=== PATIENT | female | born 1980 | race Caucasian/White ===

== ENCOUNTER 2017-12-23 13:45 | Emergency (ER) | payer MEDICARE, MEDICAID ==
[~2017-12-23] VITALS: Ht 157.5 cm; Wt 70.8 kg
[~2017-12-23 13:45] MED LIST: ACETAMINOPHEN-1 EAC1 PO; ASTAGRAF XL1 MG PO; AUGMENTIN 500-1 EACH PO; CELEXA20 MG PO; CIPRO500 MG PO; CLONAZEPAM; DOXYCYCLINE 10100 MG PO; FLAGYL 250 MG250 MG PO; FLONASE 0.05%50 MCG NS; LISINOPRIL2.5 MG PO; MYCOPHENOLIC A180 MG PO; MYFORTIC; SERTRALINE HCL50 MG PO; TACROLIMUS1 MG PO; VISTARIL 25 MG25 M1 PO; ZOFRAN ODT4 MG DISSOLVE
[2017-12-23] MEDS ORDERED: MYFORTIC360 MG PO (14:08)
[2017-12-23] MEDS ORDERED: LASIX 20 MG TAB20 MG PO (14:08)
[2017-12-23] MEDS ORDERED: ALDACTONE50 MG PO (14:09)
[2017-12-23] MEDS ORDERED: PROGRAF1 MG PO (14:10)
[2017-12-23] MEDS ORDERED: AMBIEN 5 MG TABL5 M1 PO (14:11)
[2017-12-23 14:44] LABS: ABSOLUTE BASOPHILS 0.1 thou/uL (0.0-0.2); ABSOLUTE EOSINOPHILS 0.1 thou/uL (0.0-0.7); ABSOLUTE LYMPHOCYTES 1.3 thou/uL (0.8-5.3); ABSOLUTE MONOCYTES 0.6 thou/uL (0.0-1.2); ABSOLUTE NEUTROPHILS 5.4 thou/uL (1.6-8.1); BASOPHILS 0.8 %; EOSINOPHILS 1.4 %; HEMATOCRIT 51.1 % (37.0-47.0); HEMOGLOBIN 16.8 gm/dL (12.0-15.0); LYMPHOCYTES 17.7 %; MCH 29.9 pg (26.0-34.0); MCHC 32.9 g/dL (28.0-37.0); MCV 90.9 fL (80.0-100.0); MONOCYTES 7.6 %; MPV 10.8 fl. (7.2-11.1); NUCLEATED RBCS 0 /100WBC; PLATELET COUNT* 111 thou/uL (150-400); POLYS 72.5 %; RBC 5.62 mil/uL (4.20-5.00); RDW-CV 14.6 % (10.5-14.5); WBC 7.5 thou/uL (4.0-11.0)
[2017-12-23 14:56] LABS: ANION GAP 13 mmol/L (7-16); BUN 22 mg/dL (7-18); CALCIUM 8.8 mg/dL (8.5-10.1); CHLORIDE 106 mmol/L (98-107); CO2 20 mmol/L (21-32); CREATININE 1.3 mg/dL (0.6-1.3); GLUCOSE 84 mg/dL (70-99); POTASSIUM 4.3 mmol/L (3.5-5.1); SODIUM 139 mmol/L (136-145)
[2017-12-23 15:04] LABS: ALBUMIN 3.7 g/dL (3.4-5.0); ALKALINE PHOSPHATASE 79 U/L (46-116); SGOT 11 U/L (15-37); SGPT 18 U/L (30-65); TOTAL BILIRUBIN 0.3 mg/dL (<0.1-1.0); TOTAL PROTEIN 7.8 g/dL (6.4-8.2); TROPONIN-I LEVEL <0.06 ng/mL (<0.06)
[2017-12-23 16:03] LABS: URINE BILIRUBIN NEGATIVE (Negative); URINE BLOOD NEGATIVE (Negative); URINE CLARITY CLEAR; URINE COLOR YELLOW; URINE GLUCOSE-RANDOM NEGATIVE (Negative); URINE KETONES NEGATIVE (Negative); URINE LEUKOCYTES-REFLEX NEGATIVE (Negative); URINE NITRITE-REFLEX NEGATIVE (Negative); URINE PROTEIN NEGATIVE (Negative); URINE SPECIFIC GRAVITY <= 1.005 (1.005-1.030); URINE UROBILINOGEN 0.2 E.U./dl (0.2-1.0)
[2017-12-23 16:40] VITALS: BP 141/83
--- NOTE | 2017-12-24 16:34 | EKG ---
[place] [address] ELECTROCARDIOGRAM REPORT Name: JONG ALMODOVAR Room: [facility]#: [id number] Admission: 12/23/17 Attend Phys: Discharge: 12/23/17 Date of : 78 Report #: [id number] THIS REPORT FOR: //name// [facility] ED Test Date: 2017-12-23 Test Time: 14:46:32 Pat Name: JONG ALMODOVAR Department: Room: Gender: F Intermediate Project Manager: CRESCENCIO : 1980 Requested By: Sherrie Alfonso Order Number: [id number] : Tee Ambriz Measurements Intervals [place] Rate: 75 P: 36 VT: 130 QRS: 32 QRSD: 87 T: 42 QT: 373 QTc: 417 Interpretive Statements Sinus rhythm Compared to ECG 10/01/2016 17:33:48 ST (T wave) deviation no longer present Electronically Signed On 12-24-2017 16:34:42 CDT by Tee Ambriz [email or web address] <ELECTRONICALLY SIGNED> By: Tee Ambriz MD, [facility] 12/24/17 1634 1446 1446 Tee Ambriz MD, FACC /EPI
== END 2017-12-23 16:41 | disposition home or self-care (01) ==
LOC: M.ERS 13:45
PROVIDERS: Nurse Practitioner Family
DX: K42.9 Umbilical hernia without obstruction or gangrene (principal); F17.210 Nicotine dependence, cigarettes, uncomplicated; Z94.0 Kidney transplant status; Z88.1 Allergy status to other antibiotic agents; Z88.8 Allergy status to other drugs, medicaments and biological substances; Z98.890 Other specified postprocedural states

== ENCOUNTER 2019-12-11 10:26 | Emergency (ER) | payer MEDICARE ==
[~2019-12-11] VITALS: Ht 157.5 cm; Wt 72.6 kg
[~2019-12-11 10:26] MED LIST changes: +ALDACTONE50 MG PO; +AMBIEN 5 MG TABL5 M1 PO; +LASIX 20 MG TAB20 MG PO; +MYFORTIC360 MG PO; +PROGRAF1 MG PO
[2019-12-11] MEDS ORDERED: NORCO 5-325 TA1 EAC2 PO (10:43)
[2019-12-11] MEDS ORDERED: PENICILLIN VK500 MG PO (10:44)
[2019-12-11] MEDS ORDERED: ZOFRAN ODT4 MG DISSOLVE (10:44)
[2019-12-11] MEDS ORDERED: XANAX2 MG PO (10:47)
[2019-12-11] MEDS ORDERED: ZOLOFT20 MG/1 ML PO (10:48)
[2019-12-11] MEDS ORDERED: GABITRIL 4 MG TA4 MG PO (10:48)
[2019-12-11 11:10] VITALS: BP 133/79
== END 2019-12-11 11:10 | disposition home or self-care (01) ==
LOC: M.ERS 10:26
DX: S02.5XXA Fracture of tooth (traumatic), initial encounter for closed fracture (principal); K02.9 Dental caries, unspecified; R10.31 Right lower quadrant pain; Z94.0 Kidney transplant status; Z88.1 Allergy status to other antibiotic agents; Z88.8 Allergy status to other drugs, medicaments and biological substances; X58.XXXA Exposure to other specified factors, initial encounter; Y93.89 Activity, other specified; Y92.89 Other specified places as the place of occurrence of the external cause; Y99.8 Other external cause status

== ENCOUNTER 2020-04-08 11:27 | Emergency (ER) | payer MEDICARE ==
[~2020-04-08] VITALS: Ht 157.5 cm; Wt 68.0 kg
[~2020-04-08 11:27] MED LIST changes: +GABITRIL 4 MG TA4 MG PO; +NORCO 5-325 TA1 EAC2 PO; +PENICILLIN VK500 MG PO; +XANAX2 MG PO; +ZOLOFT20 MG/1 ML PO
[2020-04-08] MEDS ORDERED: TIZANIDINE HCL 22 M1 PO (11:53)
[2020-04-08] MEDS ORDERED: COZAAR 25 MG TA25 M1 PO (11:53)
[2020-04-08 12:13] LABS: URINE BILIRUBIN NEGATIVE (Negative); URINE BLOOD 1+ (Negative); URINE CLARITY CLEAR; URINE COLOR YELLOW; URINE GLUCOSE-RANDOM NEGATIVE (Negative); URINE KETONES NEGATIVE (Negative); URINE NITRITE-REFLEX NEGATIVE (Negative); URINE PROTEIN 2+ (Negative); URINE UROBILINOGEN 0.2 E.U./dl (0.2-1.0)
[2020-04-08 12:16] LABS: HEMATOCRIT 28.9 % (37.0-47.0); HEMOGLOBIN 9.5 gm/dL (12.0-15.0); MCH 28.4 pg (26.0-34.0); MCHC 32.7 g/dL (28.0-37.0); MCV 86.8 fL (80.0-100.0); MPV 10.8 fl. (7.2-11.1); NUCLEATED RBCS 0 /100WBC; PLATELET COUNT* 108 thou/uL (150-400); RBC 3.33 mil/uL (4.20-5.00); RDW-CV 14.9 % (10.5-14.5); WBC 20.6 thou/uL (4.0-11.0)
[2020-04-08 12:21] LABS: CALCIUM 8.8 mg/dL (8.5-10.1); CREATININE 2.5 mg/dL (0.6-1.3); POTASSIUM 3.8 mmol/L (3.5-5.1)
[2020-04-08 12:25] LABS: ALBUMIN 3.5 g/dL (3.4-5.0); TOTAL BILIRUBIN 0.5 mg/dL (<0.1-1.0); TOTAL PROTEIN 7.3 g/dL (6.4-8.2)
[2020-04-08 12:25] LABS: CASTS None Seen /LPF (None Seen); CRYSTALS None Seen /LPF (None Seen); SQUAMOUS 0-3 Few /LPF (0-3); URINE LEUKOCYTES-REFLEX 2+ (Negative); URINE RBC 0-2 Rare /HPF (0-2); URINE WBC-REFLEX 6-15 Few /HPF (0-5)
[2020-04-08 12:53] LABS: ABSOLUTE LYMPHOCYTES 0.4 thou/uL (0.8-5.3); ABSOLUTE NEUTROPHILS 19.2 thou/uL (1.6-8.1); PLATELET ESTIMATE ADEQUATE
[2020-04-08 17:23] VITALS: BP 121/82
== END 2020-04-08 17:23 | disposition short-term general hospital (02) ==
LOC: M.ERS 11:27
PROVIDERS: Physician Assistant
DX: N39.0 Urinary tract infection, site not specified (principal); R11.2 Nausea with vomiting, unspecified; D72.829 Elevated white blood cell count, unspecified; N17.9 Acute kidney failure, unspecified; Z20.828 Contact with and (suspected) exposure to other viral communicable diseases; Z88.8 Allergy status to other drugs, medicaments and biological substances; Z88.1 Allergy status to other antibiotic agents; Z94.0 Kidney transplant status

== ENCOUNTER 2020-07-25 13:00 | Emergency (ER) | payer MEDICARE ==
[~2020-07-25] VITALS: Ht 157.5 cm; Wt 70.3 kg
[~2020-07-25 13:00] MED LIST changes: +COZAAR 25 MG TA25 M1 PO; +TIZANIDINE HCL 22 M1 PO
[2020-07-25 14:32] LABS: ABSOLUTE BASOPHILS 0.1 thou/uL (0.0-0.2); ABSOLUTE EOSINOPHILS 0.2 thou/uL (0.0-0.7); ABSOLUTE LYMPHOCYTES 1.2 thou/uL (0.8-5.3); ABSOLUTE MONOCYTES 0.6 thou/uL (0.0-1.2); ABSOLUTE NEUTROPHILS 6.1 thou/uL (1.6-8.1); BASOPHILS 1.1 %; EOSINOPHILS 2.2 %; HEMATOCRIT 33.8 % (37.0-47.0); HEMOGLOBIN 11.2 gm/dL (12.0-15.0); LYMPHOCYTES 14.8 %; MCH 29.3 pg (26.0-34.0); MCHC 33.1 g/dL (28.0-37.0); MCV 88.6 fL (80.0-100.0); MONOCYTES 7.1 %; MPV 10.1 fl. (7.2-11.1); NUCLEATED RBCS 0 /100WBC; PLATELET COUNT* 103 thou/uL (150-400); POLYS 74.8 %; RBC 3.81 mil/uL (4.20-5.00); RDW-CV 14.7 % (10.5-14.5); WBC 8.2 thou/uL (4.0-11.0)
[2020-07-25 14:40] LABS: CALCIUM 8.9 mg/dL (8.5-10.1); CREATININE 1.9 mg/dL (0.6-1.3); POTASSIUM 4.5 mmol/L (3.5-5.1)
[2020-07-25 14:51] LABS: ALBUMIN 3.2 g/dL (3.4-5.0); TOTAL BILIRUBIN 0.3 mg/dL (<0.1-1.0)
[2020-07-25] MEDS ORDERED: PROAIR HFA8.5 GM INH (17:10)
[2020-07-25] MEDS ORDERED: DECONEX DMX 171 EACH PO (17:10)
[2020-07-25 17:21] VITALS: BP 165/94
--- NOTE | 2020-07-26 12:12 | EKG ---
[place] [address] ELECTROCARDIOGRAM REPORT Name: JONG ALMODOVAR Room: [facility]#: [id number] Admission: 07/25/20 Attend Phys: Discharge: 07/25/20 Date of : 78 Date of Service: 07/25/20 1353 Report #: [id number] THIS REPORT FOR: //name// [facility] ED Test Date: 2020-07-25 Test Time: 13:53:58 Pat Name: JONG ALMODOVAR Department: Room: Gender: Running Specialist: GOLDBERG : 1980 Requested By: Julián Mulligan Order Number: [id number] : Tee Ambriz Measurements Intervals [place] Rate: 87 P: 32 ND: 122 QRS: 42 QRSD: 78 T: 45 QT: 353 QTc: 425 Interpretive Statements Sinus rhythm Compared to ECG 12/23/2017 14:46:32 No significant changes Electronically Signed On 07-26-2020 12:12:10 CDT by Tee Ambriz [email or web address] <ELECTRONICALLY SIGNED> By: Tee Ambriz MD, [facility] 07/26/20 1212 1353 1353 Tee Ambriz MD, FAC /EPI
== END 2020-07-25 17:22 | disposition home or self-care (01) ==
LOC: M.ERS 13:00
PROVIDERS: Emergency Medicine
DX: N28.9 Disorder of kidney and ureter, unspecified (principal); J40 Bronchitis, not specified as acute or chronic; Z20.822 Contact with and (suspected) exposure to COVID-19; Z88.1 Allergy status to other antibiotic agents; Z88.8 Allergy status to other drugs, medicaments and biological substances; Z87.01 Personal history of pneumonia (recurrent); Z94.0 Kidney transplant status

== ENCOUNTER 2021-05-31 17:05 | Emergency (ER) | payer MEDICARE ==
[~2021-05-31] VITALS: Ht 157.5 cm; Wt 77.1 kg
[~2021-05-31 17:05] MED LIST changes: +DECONEX DMX 171 EACH PO; +PROAIR HFA8.5 GM INH
[2021-05-31] MEDS ORDERED: FUROSEMIDE 40 M40 MG PO (17:19)
[2021-05-31] MEDS ORDERED: MELATONIN10 M3 PO (17:20)
[2021-05-31] MEDS ORDERED: VITAMIN D21250 MCG PO (17:20)
[2021-05-31] MEDS ORDERED: SODIUM BICARBO650 M3 PO (17:20)
[2021-05-31] MEDS ORDERED: LOPRESSOR50 MG PO (17:21)
[2021-05-31] MEDS ORDERED: TACROLIMUS1 MG PO (17:21)
[2021-05-31] MEDS ORDERED: PROCARDIA XL30 MG PO (17:21)
[2021-05-31] MEDS ORDERED: ZORTRESS0.5 MG PO (17:21)
[2021-05-31] MEDS ORDERED: PROTONIX40 M2 PO (17:22)
[2021-05-31 18:06] LABS: HEMATOCRIT 21.9 % (37.0-47.0); HEMOGLOBIN 7.5 gm/dL (12.0-15.0); MCH 28.6 pg (26.0-34.0); MCHC 34.3 g/dL (28.0-37.0); MCV 83.3 fL (80.0-100.0); MPV 8.6 fl. (7.2-11.1); NUCLEATED RBCS 0 /100WBC; PLATELET COUNT* 142 thou/uL (150-400); RBC 2.63 mil/uL (4.20-5.00); RDW-CV 14.3 % (10.5-14.5); WBC 10.6 thou/uL (4.0-11.0)
[2021-05-31 18:15] LABS: ANION GAP 13 mmol/L (7-16); BUN 45 mg/dL (7-18); CALCIUM 8.5 mg/dL (8.5-10.1); CHLORIDE 103 mmol/L (98-107); CO2 18 mmol/L (21-32); CREATININE 6.2 mg/dL (0.6-1.3); GLUCOSE 101 mg/dL (70-99); POTASSIUM 3.6 mmol/L (3.5-5.1); SODIUM 134 mmol/L (136-145)
[2021-05-31 18:23] LABS: ABSOLUTE BASOPHILS 0.2 thou/uL (0.0-0.2); ABSOLUTE LYMPHOCYTES 1.1 thou/uL (0.8-5.3); ABSOLUTE MONOCYTES 0.6 thou/uL (0.0-1.2); ABSOLUTE NEUTROPHILS 8.7 thou/uL (1.6-8.1); PLATELET ESTIMATE DECREASED
[2021-05-31 18:26] LABS: ALBUMIN 2.5 g/dL (3.4-5.0); ALKALINE PHOSPHATASE 87 U/L (46-116); LIPASE 46 U/L (73-393); MAGNESIUM 1.4 mg/dL (1.8-2.4); NT-PRO BRAIN NAT PEPTIDE > 35000 pg/mL (<300); SGOT 19 U/L (15-37); SGPT 15 U/L (30-65); TOTAL BILIRUBIN 0.6 mg/dL (<0.1-1.0); TOTAL PROTEIN 6.6 g/dL (6.4-8.2)
[2021-05-31 23:59] VITALS: BP 199/115
--- NOTE | 2021-06-01 10:32 | EKG ---
[place] [address] ELECTROCARDIOGRAM REPORT Name: JONG ALMODOVAR Room: [facility]#: [id number] Admission: 05/31/21 Attend Phys: Discharge: 06/01/21 Date of : [birth year] Date of Service: 05/31/211711 Report #: [id number] THIS REPORT FOR: //name// [facility] ED Test Date: 2021-05-31 Test Time: 17:12:48 Pat Name: JONG ALMODOVAR Department: Room: Gender: Psychological Stress Evaluator: FIFI : 1980 Requested By: Martín Sanz Order Number: [id number] MD: Reyes Andrade Measurements Intervals [place] Rate: 108 P: 67 MD: 157 QRS: 78 QRSD: 87 T: 92 QT: 352 QTc: 472 Interpretive Statements Sinus tachycardia artifact noted Consider left ventricular hypertrophy Compared to ECG 07/25/2020 13:53:58 Sinus rhythm no longer present Electronically Signed On 06-01-2021 10:32:04 SINGLE STROKE PREFORMER by Reyes Andrade [email or web address] <ELECTRONICALLY SIGNED> By: Reyes Andrade MD, [facility] 06/01/21 1032 11 11 Reyes Andrade MD, [facility] /EPI
== END 2021-06-01 00:02 | disposition short-term general hospital (02) ==
LOC: M.ERS 17:05
PROVIDERS: Emergency Medicine Emergency Medical Services
DX: I13.0 Hypertensive heart and chronic kidney disease with heart failure and stage 1 through stage 4 chronic kidney disease, or unspecified chronic kidney disease (principal); Z20.822 Contact with and (suspected) exposure to COVID-19; I50.9 Heart failure, unspecified; N19 Unspecified kidney failure; I31.3 Pericardial effusion (noninflammatory); Z94.0 Kidney transplant status; Z79.899 Other long term (current) drug therapy; Z88.1 Allergy status to other antibiotic agents; Z88.8 Allergy status to other drugs, medicaments and biological substances; Z88.6 Allergy status to analgesic agent